=== PATIENT | female | born 1950 | race Caucasian/White ===

== ENCOUNTER 2016-11-20 16:00 | Inpatient (IN) | payer OTHER ==
[2016-11-25] MEDS ORDERED: VANCOMYCIN HCL 1,000 MG in 0.9 % SODIUM CHLORIDE 250ML 250 ML IVPB ONE (06:00)
[2016-11-25] MEDS ORDERED: CEFAZOLIN 2 Gram 2 GM/50 ML BAG IVPB ONE (06:00)
[2016-11-25] MEDS ORDERED: CELECOXIB 100 MG CAPSULE PO ONE (06:00)
[2016-11-25] MEDS ORDERED: METOCLOPRAMIDE 10 MG TABLET PO ONE (06:00)
[2016-11-25] MEDS ORDERED: MECLIZINE 25 MG TABLET PO ONE (06:00)
[2016-11-25] MEDS ORDERED: FAMOTIDINE 20MG TABLET PO ONE (06:00)
[2016-11-25] MEDS ORDERED: TRANEXAMIC ACID 1,000 MG/10 ML ML IV ONE ×2 (09:31→14:00)
[2016-11-25 09:34] LABS: ABO GROUP O; ANTIBODY SCREEN NEGATIVE (NEGATIVE); RH TYPE POSITIVE
[2016-11-25] MEDS ORDERED: BISACODYL 10 MG SUPP RC PRN (13:04)
[2016-11-25] MEDS ORDERED: DIPHENHYDRAMINE HCL 25 MG CAPSULE PO PRN (13:04)
[2016-11-25] MEDS ORDERED: KETOROLAC 30 MG/ML VIAL IVP PRN ×2 (13:04)
[2016-11-25] MEDS ORDERED: NALOXONE 0.4 MG/1 ML VIAL IVP PRN (13:04)
[2016-11-25] MEDS ORDERED: MAGNESIUM HYDROXIDE 30 ML UDC PO PRN (13:04)
[2016-11-25] MEDS ORDERED: HYDROMORPHONE HCL 1 MG/ML CPJ IM PRN ×2 (13:04)
[2016-11-25] MEDS ORDERED: ACETAMINOPHEN W/ CODEINE 300MG/60MG TABLET PO PRN ×2 (13:04)
[2016-11-25] MEDS ORDERED: ONDANSETRON HCL IV 4 MG/2 ML VIAL IVP PRN (13:04)
[2016-11-25] MEDS ORDERED: HYDROMORPHONE HCL 2 MG/ML VIAL IM PRN (13:04)
[2016-11-25] MEDS ORDERED: HYDROCODONE/APAP 10/325 TABLET PO PRN (13:04)
[2016-11-25] MEDS ORDERED: AL HYDROX/MAG HYDROX 30ML UD PO PRN (13:04)
[2016-11-25] MEDS ORDERED: ACETAMINOPHEN 325 MG TAB PO PRN (13:04)
--- NOTE | 2016-11-25 13:48 | Rehab Evaluation ---
Patient Information - Patient Information Diagnosis: L TKA Ordered Treatment: PT Evaluate and Treat Status: Initial Evaluation Surgery: Yes Date of Surgery: 11/25/16 Past Medical/Surgical Hx: PAST MEDICAL/SURGICAL HISTORY Past Surgical History colon resection with colostomy rectum removed 2010 hyst 2012l bladder stimulator left lower lobe lung resection -2014 PMH - Respiratory Hx Respiratory Disorders Yes Hx Bronchitis Yes Hx Pneumonia Yes: 2014 Hx of SOB Yes: due to inactivity Comment: left lower lobe lung cancer 2014 PMH - Cardiovascular Hx Cardiovascular Disorders Yes Hx Abnormal EKG Yes: related to bladder stimulator? 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 PMH - GI Hx Gastrointestinal Disorders Yes Comment: hx colon and rectal cancer - left colonostomy bag PMH - Hx Genitourinary Disorders Yes Hx Bladder Problem Yes: has bladder stimulator Hx Urinary Tract Infection Yes: frequent Comment: s/p hyst due to prolapse PMH - Endocrine Hx Endocrine Disorders No PMH - Musculoskeletal Hx Musculoskeletal Disorders Yes Hx Arthritis Yes Comment: LEFT KNEE PAIN PMH - Psych Hx Psychiatric Problems Yes Hx Anxiety Yes Hx Depression Yes: controlled with meds PMH - Hematology/Oncology Hx Hematology/Oncology Yes Disorders Hx Cancer Yes: colon, rectal and lung Hx Chemotherapy Yes Hx Radiation Therapy Yes Premorbid Status: Detail (The patient was independent with all mobility.) Social History: Detail (The patient lives in a one story home with spouse with a step and a half with railing at enterance. The patient's bathroom has a walk in tub and a standard toilet with grab bars. The patient has a wheeled walker and a single point cane.) Precautions: Other (WBAT on the L LE) - Time With Patient Total Time Spent With Patient (Min): 25 Treatment Procedures: Detail (Initial Evaluation) Subjective Information - Subjective Information Per Patient (The patient had no complaints of L knee pain.) Objective Data - Mental Status Patient Orientation: Oriented x3 - Visual Perception Appears within normal limits for therapeutic activities - ROM Not within normal limits (The patient's L knee AROM was limited s/p surgery.) - Strength/Tone Not within normal limits (The patient's R LE was generally 4+to 5/5. The patient's L LE was not formally tested with manual muscle testing secodary to s/ p surgery however L LE strength was functional ie: patient was able to lift LE with sit to supine without assist.) - Bed Mobility Independent (The patient acheived supine to and from sit transfer independently. ) - Transfers Independent (The patient was independent with sit to and from stand transfer and toilet transfer.) - Balance Balance Sitting: Good Balance Standing: Good (The patient was able to pull up and down briefs without support of walker.) - Sensation Deficit (The patient has diminished bilateral LE sensation to light touch due to nueropathy.) - Gait Detail (The patient ambulated with wheeled walker WBAT on the L LE with supervision of 1 for safety and to handle IV a distance of 13 feet x 2.) Therapy Assessment - Therapy Assessment Detail (The patient did well with bed mobility, transfers and ambulation. Feel the patient will progress well in Rehab.) Problem List - Problem List Physical Therapy Problem List: Detail (1) Decreased L knee AROM 2) Decreased L LE strength 3) bilateral LE neuropathy 4) Supervision with ambulation and decreased ambulation distance.) Goals - Goals Physical Therapy Goals: 1) The patient will ambulate independently with wheeled walker WBAT on the L LE on levels and supervision to independent on stairs. 2 ) The patient will be independent with bed mobility and all transfers. 3) The patient will be HEP. Prognosis - Prognosis Good Plan - Plan Physical Therapy Plan: PT 2 times a day M-F until all inpatient PT goals have been met for gait training, transfer training, bed mobility and instruction in HEP.
[2016-11-25] MEDS ORDERED: FENTANYL PF 100MCG/2ML VIAL IV ONE (14:00)
[2016-11-25] MEDS ORDERED: EPHEDRINE SULFATE 50 MG/ML ML IV ONE (14:00)
[2016-11-25] MEDS ORDERED: MIDAZOLAM HCL 2MG/2ML VIAL IV ONE (14:00)
[2016-11-25] MEDS ORDERED: PROPOFOL 10 MG/ML VIAL IV ONE (14:00)
[2016-11-25] MEDS ORDERED: BUPIVACAINE 0.5% W/EPI MPF 30 ML VIAL IVP ONE (14:00)
[2016-11-25] MEDS ORDERED: KETOROLAC 30 MG/ML VIAL IVP ONE (14:00)
[2016-11-25] MEDS ORDERED: LIDOCAINE 2% MDV (20MG/ML) 20ML VIAL IV ONE (14:00)
[2016-11-25] MEDS: POTASSIUM CHLORIDE/D5-0.9%NACL 20 MEQ/1,000 ML BAG IV SCH (15:21)
[2016-11-25] MEDS: PREGABALIN 50 MG CAPSULE PO SCH ×2 (16:04→21:43)
[2016-11-25] MEDS: TAPENTADOL 50 MG TAB PO SCH ×2 (16:05→21:45)
[2016-11-25] MEDS: CEFAZOLIN 2 Gram 2 GM/50 ML BAG IVPB SCH (18:32)
[2016-11-25] MEDS: ZOLPIDEM TARTRATE 5 MG TABLET PO PRN (21:42)
[2016-11-25] MEDS: DOCUSATE SODIUM 100 MG CAPSULE PO SCH (21:43)
[2016-11-26] MEDS: CEFAZOLIN 2 Gram 2 GM/50 ML BAG IVPB SCH ×3 (02:34→10:50)
[2016-11-26] MEDS: POTASSIUM CHLORIDE/D5-0.9%NACL 20 MEQ/1,000 ML BAG IV SCH ×2 (02:36→05:47)
[2016-11-26 07:06] LABS: HEMATOCRIT 33.8 % (35.0-47.0); HEMOGLOBIN 10.7 gm/dl (11.6-16.0)
[2016-11-26 07:19] LABS: ANION GAP 4.7 (7-16); CARBON DIOXIDE 32.3 mmol/L (22-30)
[2016-11-26] MEDS: TAPENTADOL 50 MG TAB PO SCH ×4 (07:21→22:57)
[2016-11-26] MEDS: HYDROCODONE/APAP 10/325 TABLET PO PRN ×4 (07:22→22:55)
[2016-11-26] MEDS: PREGABALIN 50 MG CAPSULE PO SCH ×3 (08:30→22:54)
--- NOTE | 2016-11-26 10:00 | Physical Therapy Tx Note ---
Physical Therapy Tx Note - Treatment Note Tolerated: Good (Patient sitting up in chair and doing well today; pain about 4/ 10 this am with putting weight on leg. She is able to do exercises sitting in chair but notes more discomfort.) Total Time Spent With Patient: 25 Physical Therapy Tx Note: Detail (Patient sitting up in chair reclined when entered room. Able to do exercises for knee sitting up: heel slides, SAQ, SLR, quad, glut and ham sets then ankle pumps. Assisted patient to let legs down from recliner then sit to stand independently, ambulated with FWW out to perales about 50 feet then back to room WBAT. Patient able to get back into bed with very little help with left LE then able to pull herself up in bed. Re-attached cryocuff and compressive stockings, pulled tray table close and call light. Patient felt a little more sore but doing well.) Physical Therapy Problem List: Detail (1) Decreased L knee AROM 2) Decreased L LE strength 3) bilateral LE neuropathy 4) Supervision with ambulation and decreased ambulation distance.) Physical Therapy Goals: 1) The patient will ambulate independently with wheeled walker WBAT on the L LE on levels and supervision to independent on stairs. 2 ) The patient will be independent with bed mobility and all transfers. 3) The patient will be HEP. Prognosis: Good (Patient doing quite well with mobility at this point; will try further distances ambulating this afternoon and steps.) Physical Therapy Plan: PT 2 times a day M-F until all inpatient PT goals have been met for gait training, transfer training, bed mobility and instruction in HEP.
--- NOTE | 2016-11-26 10:41 | Rehab Evaluation ---
Patient Information - Patient Information Diagnosis: L TKA Ordered Treatment: OT Evaluate and Treat Status: Initial Evaluation Surgery: Yes Date of Surgery: 11/25/16 History: Detail Past Medical/Surgical Hx: PAST MEDICAL/SURGICAL HISTORY Past Surgical History colon resection with colostomy rectum removed 2010 hyst 2012l bladder stimulator left lower lobe lung resection -2014 PMH - Respiratory Hx Respiratory Disorders Yes Hx Bronchitis Yes Hx Pneumonia Yes: 2014 Hx of SOB Yes: due to inactivity Comment: left lower lobe lung cancer 2014 PMH - Cardiovascular Hx Cardiovascular Disorders Yes Hx Abnormal EKG Yes: related to bladder stimulator? seeing geotechnical engineering technician 09-18-16 Exercise Tolerance Fair Comment: related to hip knee and neuropathy PMH - Neuro Hx Neurological Disorders Yes Hx Neuropathy Yes: bilat legs knees down, rigfht arm and fingers from chermo PMH - GI Hx Gastrointestinal Disorders Yes Comment: hx colon and rectal cancer - left colonostomy bag PMH - Hx Genitourinary Disorders Yes Hx Bladder Problem Yes: has bladder stimulator Hx Urinary Tract Infection Yes: frequent Comment: s/p hyst due to prolapse PMH - Endocrine Hx Endocrine Disorders No PMH - Musculoskeletal Hx Musculoskeletal Disorders Yes Hx Arthritis Yes Comment: LEFT KNEE PAIN PMH - Psych Hx Psychiatric Problems Yes Hx Anxiety Yes Hx Depression Yes: controlled with meds PMH - Hematology/Oncology Hx Hematology/Oncology Yes Disorders Hx Cancer Yes: colon, rectal and lung Hx Chemotherapy Yes Hx Radiation Therapy Yes Premorbid Status: Detail (The patient was independent with all mobility and ADLs MATERIALS DIRECTOR. She was here approx. 1 month ago for L KADIE. When asked about if she was still under hip precautions, patient reported that surgeon said "if it hurts , don't do it.") Social History: Detail (The patient lives in a one story home with spouse with a step and a half with railing at entrance. There is a basement but patient never goes down there. The patient's bathroom has a walk in tub with hand held shower head and grab bars. She has a janitorial account manager, sock aid, standard toilet ( recently purchased raised toilet seat). The patient has a 4 wheeled walker w/ seat and a single point cane.) Precautions: Other (WBAT on the L LE,) - Time With Patient Total Time Spent With Patient (Min): 45 Subjective Information - Subjective Information Per Patient (Patient may be having a R TKA in December depending on rehab of L TKA.) Objective Data - Pain Pain Present: No Pain Intensity: 0 Pain Scale Used: Numeric (1 - 10) - Mental Status Patient Orientation: Oriented x3 - ROM Within normal limits (BUE's) - Strength/Tone Within normal limits (BUE's) - Bed Mobility Independent - Transfers Independent (sit<>stand t/f's) - Balance Balance Sitting: Good - Sensation Deficit (Patient has neuropathy and has lost feeling of several digits in B hands.) - Gait Detail (Patient amb. w/ 2WW over 104 ft from room to surgical waiting room Ind. w/ no LOB or dizziness.) - ADL's/IADL's Detail (Patient was instructed on drsg techniques. She was familiar with these from recent hip sx. Required v/c's to thread surgical LE first, but then able to don pants Ind. Patient will not be wearing socks while at home and will wear crocs. She does have a sock aid and is able to verbalize how to use it. Ind with UB drsg. Ind w/ teeth brushing/face washing standing at sink w/ 2WW.) Therapy Assessment - Therapy Assessment Detail (Patient doing well following surgery. She is able to complete drsg Ind w / only v/c's x1 for technique with LB drsg. She is Ind w/ sit<>stand t/f's using 2ww. Discussed showering techniques and how to wrap L knee to avoid it getting wet when at home. Patient expresses concern about going home 2^ spouse is away until Thursday. She is anxious about being at home alone. Patient does have children that live near by but that work during the day and she does not want to be a "burden" by asking them to come over. Feel patient would benefit from home OT to further evaluate funtion and safety in the home. Will be able to further evaluate safety with showering if appropriate and if patient is to remain here for a few days.) Patient Education - Patient Education Teaching Topic: Equipment Use (Drsg technique using janitorial account manager), Other Teaching Method: Discussion Teaching Recipient: Patient Barriers To Learning: None Problem List - Problem List Physical Therapy Problem List: Detail (1) Decreased L knee AROM 2) Decreased L LE strength 3) bilateral LE neuropathy 4) Supervision with ambulation and decreased ambulation distance.) Occupational Therapy Problem List: Detail (1. Verbal cues for LB drsg techniques needed 2. Decreased knowledge of managing L knee when showering to avoid infection and increased pain) Goals - Goals Physical Therapy Goals: 1) The patient will ambulate independently with wheeled walker WBAT on the L LE on levels and supervision to independent on stairs. 2 ) The patient will be independent with bed mobility and all transfers. 3) The patient will be HEP. Occupational Therapy Goals: 1. Ind with LB drsg w/o verbal cues. 2. Ind. with showering using AD as needed Prognosis - Prognosis Good Plan - Plan Physical Therapy Plan: PT 2 times a day M-F until all inpatient PT goals have been met for gait training, transfer training, bed mobility and instruction in HEP. Occupational Therapy Plan: Recommend home OT. Evaluate showering if patient is to remain here to assess for safety with showering and managing L knee.
[2016-11-26] MEDS: HYDROCHLOROTHIAZIDE 25 MG TABLET PO SCH (10:45)
[2016-11-26] MEDS: ASPIRIN 325 MG TAB ENTERIC-COATED PO SCH (10:45)
[2016-11-26] MEDS: MULTIVITAMINS/MINERALS TABLET PO SCH (10:45)
[2016-11-26] MEDS: DOCUSATE SODIUM 100 MG CAPSULE PO SCH ×2 (10:45→22:56)
[2016-11-26] MEDS: FERROUS SULFATE 325 MG TAB PO SCH (10:46)
[2016-11-26] MEDS: CITALOPRAM 20 MG TABLET PO SCH (10:46)
[2016-11-26] MEDS: CHOLECALCIFEROL 1,000 UNIT TABLET PO SCH (10:46)
[2016-11-26] MEDS: RIVAROXABAN 10 MG TABLET PO SCH (10:46)
--- NOTE | 2016-11-26 14:04 | Consult ---
Consult Order Detail - Reason for Consult Consult Date: 11/26/16 Consult Order Detail: Requested medical consult for bladder spasm management by Dr Hidalgo - Chief Complaint Chief Complaint: DEGENERATIVE JOINT DISEASE LEFT KNEE HPI Consult - General Complaint: bladder spasm, stress incontinence, dribbling. Uses Myrbetriq at home Onset/Timin -: Year(s) Location: Other (bladder) Radiation: Non-Radiating Quality: Other (spasm) Consistency: Constant Associated symptoms: Denies other symptoms ROS - Genitourinary Genitourinary: Reports: As per HPI, Incontinence (stress), Other (dribbling) Past Medical History - SOCIAL HISTORY Smoking Status: Former smoker Alcohol Use: Rare Drug Use: None - RESPIRATORY Hx Respiratory Disorders: Yes Hx Bronchitis: Yes Hx Pneumonia: Yes (2014) Comment:: left lower lobe lung cancer 2014 - CARDIOVASCULAR Hx Cardio Disorders: Yes Hx Abnormal EKG: Yes (related to bladder stimulator? seeing bee keeper 09-18-16 ) Comment:: related to hip knee and neuropathy - NEURO Hx Neuro Disorders: Yes Hx Neuropathy: Yes (bilat legs knees down, rigfht arm and fingers from chermo) - GI Hx GI Disorders: Yes Hx of Polyps: Yes (colon) Comment:: hx colon and rectal cancer - left colonostomy bag - Hx Genitourinary Disorders: Yes Hx Bladder Problem: Yes (has bladder stimulator) Hx UTI: Yes (frequent) Comment:: s/p hyst due to prolapse - ENDOCRINE Hx Endocrine Disorders: No - MUSCULOSKELETAL Hx Musculoskeletal Disorders: Yes Hx Arthritis: Yes - PSYCH Hx Psych Problems: Yes Hx Anxiety: Yes Hx Depression: Yes (controlled with meds) - HEMATOLOGY/ONCOLOGY Hx Hematology/Oncology Disorders: Yes Hx Chemotherapy: Yes Hx Radiation Therapy: Yes Family Medical History Any Significant Family History?: Yes Hx Depression: Father *Depression Comment: alhz Hx Diabetes: Grandparents Hx Resp Disorders: Brother/Sister *Resp Comment: copd Hx Stroke: Grandparents H&P Meds - Home Medications and Allergies Previous Rx's Medication Instructions Recorded Hydromorphone HCl [Dilaudid] 2 mg PO Q4H PRN #40 tablet 09/25/16 Multivitamin/Iron/Folic Acid 1 tab PO DAILY tablet 09/25/16 [Centrum] Pregabalin [Lyrica] 200 mg PO TID capsule 09/25/16 Rivaroxaban [Xarelto] 10 mg PO DAILY #30 tab 09/25/16 Tapentadol HCl [Nucynta] 100 mg PO QID tab 09/25/16 Allergies Allergy/AdvReac Type Severity Reaction Status Date / Time No Known Drug Allergies Allergy Verified 09/15/16 09:15 Physical Exam - General General Appearance: Alert, Oriented x3, No acute distress - Head Head exam: Atraumatic - ENT ENT exam: Normal exam - Respiratory Respiratory exam: negative: Respiratory distress - GI/Abdominal GI/Abdominal exam: Soft, Normal bowel sounds. negative: Tenderness - exam: Deferred - Neurological Neurological exam: Alert, Oriented X3 - Psychiatric Psychiatric exam: Normal affect, Normal mood Results - Labs Result Diagrams: 11/26/16 06:41 11/26/16 06:41 Labs Last 24 Hours: Laboratory Results - last 24 hr 11/26/16 11/26/16 06:41 06:41 Hgb 10.7 L Hct 33.8 L Sodium 144 Potassium 4.5 Chloride 107 Carbon Dioxide 32.3 H Anion Gap 4.7 L BUN 14 Creatinine 1.0 Estimated GFR 59 Random Glucose 92 Calcium 8.4 L Assessment and Plan - Assessment and Plan (1) Stress incontinence Current Visit: Yes Status: Acute Base Code: N39.3 - STRESS INCONTINENCE ( FEMALE) (MALE) Comment: 11/26/16- consult by request of Dr Hidalgo for bladder spasm management. 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 Has bladder stimulator placed by Urologist Dr Tamir Gamez less than a year ago with good results. Has tried Ditropan and Detrol in the past with mild improvement with side effects of bladder cramping. Within the last year was changed to Myrbetriq with good results. Will need to make formulary change for treatment while hospitalized. Has been experiencing increased incontinence and dribbling since being without Myrbetric. Risks as well as potential side effects of Oxybutynin discussed with patient and she wishes to use while hospitalized to improve symptoms. - UA w/ C&S r/o underlying UTI - Oxybutynin 5mg BID (2) Bladder spasms Current Visit: Yes Status: Acute Base Code: N32.89 - OTHER SPECIFIED DISORDERS OF BLADDER Comment: 11/26/16- consult by request of Dr Hidalgo for bladder spasm management. 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 Has bladder stimulator placed by Urologist Dr Tamir Gamez less than a year ago with good results. Has tried Ditropan and Detrol in the past with mild improvement with side effects of bladder cramping. Within the last year was changed to Myrbetriq with good results. Will need to make formulary change for treatment while hospitalized. Has been experiencing increased incontinence and dribbling since being without Myrbetric. Risks as well as potential side effects of Oxybutynin discussed with patient and she wishes to use while hospitalized to improve symptoms. - UA w/ C&S r/o underlying UTI - Oxybutynin 5mg BID
--- NOTE | 2016-11-26 15:47 | Physical Therapy Tx Note ---
Physical Therapy Tx Note - Treatment Note Tolerated: Good (Doing much better this afternoon and willing to walk and try stairs: did quite well on stairs but quite a bit of pain with weightbearing yet. ROM very good at knee.) Total Time Spent With Patient: 30 Physical Therapy Tx Note: Detail (Patient seen in room and sitting in bed with clothes on. Able to move supine to sit to stand independently with FWW, WBAT left. Ambulated with FWW and WBAT about 100 feet to stairs, rested in wheelchair for a couple of minutes then ambulated down three steps using folded walker and rail, then stepped outside for a couple of minutes using curb type step, back in then up three more steps with proper technique then ambulated back to room with good technique and WBAT. Sat up in chair and performed knee exercises with good technique and ROM. Replaced cryocuff and tray table and call light close.) Physical Therapy Problem List: Detail (1) Decreased L knee AROM 2) Decreased L LE strength 3) bilateral LE neuropathy 4) Supervision with ambulation and decreased ambulation distance.) Physical Therapy Goals: 1) The patient will ambulate independently with wheeled walker WBAT on the L LE on levels and supervision to independent on stairs. 2 ) The patient will be independent with bed mobility and all transfers. 3) The patient will be HEP. Prognosis: Good (Patient has met goals but staying until Thursday am and will be seen at least tomorrow am () by PT to increase comfort with walking.) Physical Therapy Plan: PT 2 times a day M- until all inpatient PT goals have been met for gait training, transfer training, bed mobility and instruction in HEP.
[2016-11-26 18:08] LABS: URINE APPEARANCE CLEAR; URINE BILIRUBIN NEGATIVE (NEGATIVE); URINE BLOOD NEGATIVE (NEGATIVE); URINE COLOR YELLOW; URINE GLUCOSE (UA) NEGATIVE (NEGATIVE); URINE KETONE NEGATIVE (NEGATIVE); URINE LEUKOCYTE ESTERASE NEGATIVE (NEGATIVE); URINE NITRITE NEGATIVE (NEGATIVE); URINE PROTEIN NEGATIVE (NEGATIVE); URINE UROBILINOGEN 0.2 E.U./dL (0.20 - 1.00)
[2016-11-26] MEDS: ZOLPIDEM TARTRATE 5 MG TABLET PO PRN (22:55)
[2016-11-26] MEDS: OXYBUTYNIN CHLORIDE 5MG TABLET PO SCH (22:55)
[2016-11-27 06:34] LABS: HEMATOCRIT 34.4 % (35.0-47.0)
[2016-11-27 06:53] LABS: ANION GAP 6.7 (7-16); BLOOD UREA NITROGEN 18 mg/dL (7-17); CARBON DIOXIDE 29.3 mmol/L (22-30); CREATININE 0.9 mg/dL (0.52-1.04); EST GLOMERULAR FILTRATION RATE > 60 ml/min; GLUCOSE,RANDOM 87 mg/dL (70-110)
[2016-11-27] MEDS: PREGABALIN 50 MG CAPSULE PO SCH ×3 (08:23→21:36)
[2016-11-27] MEDS: TAPENTADOL 50 MG TAB PO SCH ×4 (08:24→21:36)
[2016-11-27] MEDS: CITALOPRAM 20 MG TABLET PO SCH (09:10)
[2016-11-27] MEDS: MULTIVITAMINS/MINERALS TABLET PO SCH (09:10)
[2016-11-27] MEDS: OXYBUTYNIN CHLORIDE 5MG TABLET PO SCH ×2 (09:11→21:36)
[2016-11-27] MEDS: HYDROCHLOROTHIAZIDE 25 MG TABLET PO SCH (09:11)
[2016-11-27] MEDS: ASPIRIN 325 MG TAB ENTERIC-COATED PO SCH (09:11)
[2016-11-27] MEDS: DOCUSATE SODIUM 100 MG CAPSULE PO SCH ×2 (09:11→21:36)
[2016-11-27] MEDS: CHOLECALCIFEROL 1,000 UNIT TABLET PO SCH (09:12)
[2016-11-27] MEDS: FERROUS SULFATE 325 MG TAB PO SCH (09:12)
[2016-11-27] MEDS: RIVAROXABAN 10 MG TABLET PO SCH (09:12)
[2016-11-27] MEDS: HYDROCODONE/APAP 10/325 TABLET PO PRN ×3 (09:13→21:42)
--- NOTE | 2016-11-27 10:45 | Physical Therapy Tx Note ---
Physical Therapy Tx Note - Treatment Note Tolerated: Good Total Time Spent With Patient: 30 Physical Therapy Tx Note: Detail (Patient states 6/10 pain in left knee. Patient transferred sit to and from stand independently. Patient ambulated 130 feet with wheeled walker SBA x1. Patient performed the following exercises seated in chair x10 reps each: quad sets, plantarflexion with green theraband, hamstring sets, glut squeezes, heel slides, and SLR with assist x5. Patient tolerated treatment well. Patient displays decreased strength and endurance with quad sets, and SLR with assist. Patient reports knee sore after treatment. Patient was left seated in chair with call light within reach.) Physical Therapy Problem List: Detail (1) Decreased L knee AROM 2) Decreased L LE strength 3) bilateral LE neuropathy 4) Supervision with ambulation and decreased ambulation distance.) Physical Therapy Goals: 1) The patient will ambulate independently with wheeled walker WBAT on the L LE on levels and supervision to independent on stairs. 2 ) The patient will be independent with bed mobility and all transfers. 3) The patient will be HEP. Prognosis: Good Physical Therapy Plan: PT 2 times a day M-F until all inpatient PT goals have been met for gait training, transfer training, bed mobility and instruction in HEP.
--- NOTE | 2016-11-27 15:40 | Consult ---
Consult Order Detail - Chief Complaint Chief Complaint: DEGENERATIVE JOINT DISEASE LEFT KNEE ROS - Genitourinary Genitourinary: Reports: As per HPI, Incontinence (stress), Other (dribbling) Past Medical History - SOCIAL HISTORY Smoking Status: Former smoker Alcohol Use: Rare Drug Use: None - RESPIRATORY Hx Respiratory Disorders: Yes Hx Bronchitis: Yes Hx Pneumonia: Yes (2014) Comment:: left lower lobe lung cancer 2014 - CARDIOVASCULAR Hx Cardio Disorders: Yes Hx Abnormal EKG: Yes (related to bladder stimulator? seeing nursing program chair 09-18-16 ) Comment:: related to hip knee and neuropathy - NEURO Hx Neuro Disorders: Yes Hx Neuropathy: Yes (bilat legs knees down, rigfht arm and fingers from chermo) - GI Hx GI Disorders: Yes Hx of Polyps: Yes (colon) Comment:: hx colon and rectal cancer - left colonostomy bag - Hx Genitourinary Disorders: Yes Hx Bladder Problem: Yes (has bladder stimulator) Hx UTI: Yes (frequent) Comment:: s/p hyst due to prolapse - ENDOCRINE Hx Endocrine Disorders: No - MUSCULOSKELETAL Hx Musculoskeletal Disorders: Yes Hx Arthritis: Yes - PSYCH Hx Psych Problems: Yes Hx Anxiety: Yes Hx Depression: Yes (controlled with meds) - HEMATOLOGY/ONCOLOGY Hx Hematology/Oncology Disorders: Yes Hx Chemotherapy: Yes Hx Radiation Therapy: Yes Family Medical History Any Significant Family History?: Yes Hx Depression: Father *Depression Comment: alhz Hx Diabetes: Grandparents Hx Resp Disorders: Brother/Sister *Resp Comment: copd Hx Stroke: Grandparents H&P Meds - Home Medications and Allergies Previous Rx's Medication Instructions Recorded Hydromorphone HCl [Dilaudid] 2 mg PO Q4H PRN #40 tablet 09/25/16 Multivitamin/Iron/Folic Acid 1 tab PO DAILY tablet 09/25/16 [Centrum] Pregabalin [Lyrica] 200 mg PO TID capsule 09/25/16 Rivaroxaban [Xarelto] 10 mg PO DAILY #30 tab 09/25/16 Tapentadol HCl [Nucynta] 100 mg PO QID tab 09/25/16 Allergies Allergy/AdvReac Type Severity Reaction Status Date / Time No Known Drug Allergies Allergy Verified 09/15/16 09:15 Results - Labs Result Diagrams: 11/27/16 06:17 11/27/16 06:17 Labs Last 24 Hours: Laboratory Results - last 24 hr 11/26/16 11/27/16 11/27/16 16:00 06:17 06:17 Hgb 11.0 L Hct 34.4 L Sodium 140 Potassium 3.8 Chloride 104 Carbon Dioxide 29.3 Anion Gap 6.7 L BUN 18 H Creatinine 0.9 Estimated GFR > 60 Random Glucose 87 Calcium 8.7 Urine Color Yellow Urine Appearance Clear Urine pH 6.0 Ur Specific Jerome <= 1.005 Urine Protein Negative Urine Glucose (UA) Negative Urine Ketones Negative Urine Blood Negative Urine Nitrite Negative Urine Bilirubin Negative Urine Urobilinogen 0.2 Ur Leukocyte Esterase Negative Assessment and Plan - Assessment and Plan (1) Stress incontinence Current Visit: Yes Status: Acute Base Code: N39.3 - STRESS INCONTINENCE ( FEMALE) (MALE) Comment: 11/27/16- UA negative for infection. Tolerating oxybutynin. Will sign off (2) Bladder spasms Current Visit: Yes Status: Acute Base Code: N32.89 - OTHER SPECIFIED DISORDERS OF BLADDER Comment: 11/26/16- consult by request of Dr Hidalgo for bladder spasm management. 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 Has bladder stimulator placed by Urologist Dr Tamir Gamez less than a year ago with good results. Has tried Ditropan and Detrol in the past with mild improvement with side effects of bladder cramping. Within the last year was changed to Myrbetriq with good results. Will need to make formulary change for treatment while hospitalized. Has been experiencing increased incontinence and dribbling since being without Myrbetric. Risks as well as potential side effects of Oxybutynin discussed with patient and she wishes to use while hospitalized to improve symptoms. - UA w/ C&S r/o underlying UTI - Oxybutynin 5mg BID
[2016-11-27] MEDS: ZOLPIDEM TARTRATE 5 MG TABLET PO PRN (21:42)
[2016-11-28] MEDS: HYDROCODONE/APAP 10/325 TABLET PO PRN ×2 (06:57→11:29)
[2016-11-28] MEDS ORDERED: PREGABALIN (LYRICA) 100MG CAPSULE PO SCH (08:00)
[2016-11-28] MEDS: TAPENTADOL 50 MG TAB PO SCH (09:08)
[2016-11-28] MEDS: CHOLECALCIFEROL 1,000 UNIT TABLET PO SCH (09:08)
[2016-11-28] MEDS: OXYBUTYNIN CHLORIDE 5MG TABLET PO SCH (09:09)
[2016-11-28] MEDS: CITALOPRAM 20 MG TABLET PO SCH (09:09)
[2016-11-28] MEDS: DOCUSATE SODIUM 100 MG CAPSULE PO SCH (09:09)
[2016-11-28] MEDS: HYDROCHLOROTHIAZIDE 25 MG TABLET PO SCH (09:09)
[2016-11-28] MEDS: RIVAROXABAN 10 MG TABLET PO SCH (09:09)
[2016-11-28] MEDS: FERROUS SULFATE 325 MG TAB PO SCH (09:09)
[2016-11-28] MEDS: MULTIVITAMINS/MINERALS TABLET PO SCH (09:09)
[2016-11-28] MEDS: ASPIRIN 325 MG TAB ENTERIC-COATED PO SCH (09:09)
--- NOTE | 2016-12-01 17:12 | Operative Note ---
DATE OF SURGERY: 11/25/2016. PREOPERATIVE DIAGNOSIS: End-stage arthrosis, left knee. POSTOPERATIVE DIAGNOSIS: End-stage arthrosis, left knee. OPERATION: LEFT TOTAL KNEE ARTHROPLASTY USING RODRIGUEZ & NEPHEW JADEN II COMPONENTS, A SIZE 4 OXINIUM FEMUR, A SIZE 3 STEMMED TIBIAL BASE PLATE, A 13 MM LIPPED TIBIAL INSERT. PATELLA WAS NOT RESURFACED BECAUSE IT WAS TOO THIN. Staff Surgeon: Chris Hidalgo MD. Anesthesia: Spinal. Preparation: ChloraPrep. Individual Considerations: None. PROCEDURE: Patient was taken to the operating room, placed supine on the operating table. She had a successful induction with spinal anesthetic. Her left lower extremity was prepped and draped in the usual fashion. Patient had a midline approach to the knee. Limb was elevated. Tourniquet was inflated to 250 mmHg. Sharp dissection carried down through skin and subcutaneous tissue. Small veins were coagulated with the Bovie. A medial arthrotomy was performed. Patella was everted. Knee was flexed. Patient had exposed bone in all 3 compartments, but the patella was quite thin. Provisional osteophytes were removed, fat pad was resected, provisional anterior meniscectomies were performed, and the capsule was released in medial proximal tibia, along with sacrificing the ACL. The initial femoral aeroplane pilot hole was then made freehand. It was set in 7.0 degrees of valgus and adjusted for a 10 mm resection with the guide. The initial transverse cut was then made. Skin guide was placed for the anterior and posterior alignment guide. It was found that I needed to go a size 4 because size 5 would overstuff, but I needed to translate it anteriorly 2 mm, and I used a translation block in order to do that. The anterior and posterior cuts were made, followed by chamfer cuts. Osteophytes were removed, and a size 4 trial was placed, found to fit well. Tibia was brought forward, and the remainder of the meniscal remnants were removed with the Bovie. The extraarticular tibial cutting jig was placed. It was cut in neutral with a 3 degree AP slope. Care was taken to adjust for rotation and flexion using extraarticular alignment guide. It was set for a 9 mm resection keyed off the high lateral side, secured with pins. When cutting the tibia, care was taken to preserve the PCL insertion on the tibia. After removing osteophytes, it was found that a size 3 would be appropriate. It was adjusted for rotation and secured with pins. I initially used the 11, but I later increased it to a 13 mm spacer and liner, and with the femoral trial, there were excellent motion and stability. Ligamentous balance, rotation alignment were thought to be normal. The femoral aeroplane pilot holes were impacted and the triflange tibial stamp was impacted. These trial components were removed. This lady was quite obese, and her patella was like 17 mm thick, so resurfacing was out of the question because it would be extremely high risk for fracture. I just trimmed the osteophytes. Tourniquet was let down briefly to get posteriorly and then placed back up again. The knee was then thoroughly irrigated out with pulsatile Betadine and saline to remove any visual or palpable debris. Bony surfaces were then dried. A size 3 stemmed tibial base plate was cemented into place, followed by impaction of a 13 mm lipped poly crosslink tibial insert, followed by cementing in a size 4 Oxinium femur. Implant surfaces were compressed, excess cement was removed, and after the cement had set, there were excellent motion and stability. Ligamentous balance, rotation alignment, patellofemoral tracking was normal. No lateral release was required. Tourniquet let down. Hemostasis was obtained with the Bovie. The periosteum and subcutaneous tissue and skin were infiltrated with 30 mL of 0.5% Marcaine with epinephrine. The capsule was then closed with running #2 Quill. Subcu was closed in layers with running 0 Quill. Skin was closed with sandy. Patient did receive 1 g of tranexamic acid IV preop. We then mixed 1 g of tranexamic acid with 40 mL of saline and injected it into the knee through a sterile needle and a sterile bulky compressive dressing with Aquacel dressing was applied. Patient tolerated the procedure well. Needle and sponge counts were corrected. Estimated blood loss was minimal. She was taken back to recovery in good condition. There were no complications. CC: DO ELOISA Rosa
--- NOTE | 2016-12-02 09:50 | Discharge Summary ---
DATE OF ADMISSION: 11/25/2016 DATE OF DISCHARGE: 11/28/2016 DATE OF SURGERY: 11/25/2016 HISTORY: The patient is a delightful, 66-year-old female who presents with end-stage arthrosis of the left knee. She was admitted for left total knee arthroplasty. Postoperatively, she did well. Her hospital course was unremarkable except for the fact that we needed to consult the medical doctor to get back on her bladder spasm medication. They followed her in the hospital for this problem. Her hospital course was unremarkable. Discharge hemoglobin was above 11. PLAN: Discharge to home in the care of her family. Home PT visiting nurse has been arranged. She will be given for DVT prophylaxis. She should have her sutures removed on 12/10/2016, and she should follow up in my office in 4-6 weeks. These instructions were given directly to the patient and her . FINAL DIAGNOSIS/PRIMARY DIAGNOSIS: End-stage arthrosis of the left knee. SECONDARY DIAGNOSIS: Bladder spasms, stable. OPERATIONS AND PROCEDURES: Cemented left total knee arthroplasty. CC: DO ELOISA Rosa
== END 2016-11-28 11:40 | disposition home or self-care (01) | DRG 470 ==
LOC: MEDSURG 11-25 08:41
PROVIDERS: ADMIT Orthopaedic Surgery; ATTEND Orthopaedic Surgery
PROC: 0SRD0J9 Replacement of Left Knee Joint with Synthetic Substitute, Cemented, Open Approach (ICD-10-PCS; principal; 2016-11-25 11:00)
DX: M17.12 Unilateral primary osteoarthritis, left knee (principal); G62.9 Polyneuropathy, unspecified; Z85.118 Personal history of other malignant neoplasm of bronchus and lung; Z93.3 Colostomy status
CPT/HCPCS: 80048; 81003; 85014; 85018; 86850; 86900; 86901; 97110; 97116; 97165; 97530; J1885; J3480; J7050

== ENCOUNTER 2017-01-29 13:30 | Inpatient (IN) | payer OTHER ==
[2017-02-10] MEDS ORDERED: VANCOMYCIN HCL 1,000 MG in 0.9 % SODIUM CHLORIDE 250ML 250 ML IVPB ONE (06:00)
[2017-02-10] MEDS ORDERED: METOCLOPRAMIDE 10 MG TABLET PO ONE (06:00)
[2017-02-10] MEDS ORDERED: MECLIZINE 25 MG TABLET PO ONE (06:00)
[2017-02-10] MEDS ORDERED: CELECOXIB 100 MG CAPSULE PO ONE (06:00)
[2017-02-10] MEDS ORDERED: CEFAZOLIN 2 Gram 2 GM/50 ML BAG IVPB ONE (06:00)
[2017-02-10] MEDS ORDERED: FAMOTIDINE 20MG TABLET PO ONE (06:00)
[2017-02-10] MEDS ORDERED: TRANEXAMIC ACID 1,000 MG/10 ML ML IV ONE (08:52)
[2017-02-10] MEDS ORDERED: 0.9 % SODIUM CHLORIDE 10 ML VIAL IVP ONE (08:52)
[2017-02-10 10:11] LABS: ABO GROUP O; ANTIBODY SCREEN NEGATIVE (NEGATIVE); RH TYPE POSITIVE
[2017-02-10] MEDS ORDERED: DIPHENHYDRAMINE HCL 25 MG CAPSULE PO PRN (13:37)
[2017-02-10] MEDS ORDERED: HYDROCODONE/APAP 10/325 TABLET PO PRN (13:37)
[2017-02-10] MEDS ORDERED: ZOLPIDEM TARTRATE 5 MG TABLET PO PRN (13:37)
[2017-02-10] MEDS ORDERED: ONDANSETRON HCL IV 4 MG/2 ML VIAL IVP PRN (13:37)
[2017-02-10] MEDS ORDERED: ACETAMINOPHEN 325 MG TAB PO PRN (13:37)
[2017-02-10] MEDS ORDERED: AL HYDROX/MAG HYDROX 30ML UD PO PRN (13:37)
[2017-02-10] MEDS ORDERED: NALOXONE 0.4 MG/1 ML VIAL IVP PRN (13:37)
[2017-02-10] MEDS ORDERED: BISACODYL 10 MG SUPP RC PRN (13:37)
[2017-02-10] MEDS ORDERED: HYDROMORPHONE HCL 2 MG/ML VIAL IM PRN (13:37)
[2017-02-10] MEDS ORDERED: ACETAMINOPHEN W/ CODEINE 300MG/60MG TABLET PO PRN ×2 (13:37)
[2017-02-10] MEDS ORDERED: KETOROLAC 30 MG/ML VIAL IVP PRN ×2 (13:37)
[2017-02-10] MEDS ORDERED: MAGNESIUM HYDROXIDE 30 ML UDC PO PRN (13:37)
[2017-02-10] MEDS ORDERED: LIDOCAINE 2% MDV (20MG/ML) 20ML VIAL IV ONE (14:00)
[2017-02-10] MEDS ORDERED: FENTANYL PF 100MCG/2ML VIAL IV ONE (14:00)
[2017-02-10] MEDS ORDERED: PROPOFOL 10 MG/ML VIAL IV ONE (14:00)
[2017-02-10] MEDS ORDERED: DIPHENHYDRAMINE HCL IV 50 MG/ML VIAL IVP ONE (14:00)
[2017-02-10] MEDS ORDERED: MIDAZOLAM HCL 2MG/2ML VIAL IV ONE (14:00)
--- NOTE | 2017-02-10 14:47 | Rehab Evaluation ---
Patient Information - Patient Information Diagnosis: R TKA Ordered Treatment: PT Evaluate and Treat Status: Initial Evaluation Surgery: Yes Date of Surgery: 02/10/17 Past Medical/Surgical Hx: PAST MEDICAL/SURGICAL HISTORY Past Surgical History LTHA left total knee arthroplasty 11-22 colon resection with colostomy rectum removed 2010 hyst 2012l bladder stimulator left lower lobe lung resection -2014 PMH - Respiratory Hx Respiratory Disorders Yes Hx Asthma No Hx Bronchitis Yes Hx Chronic Obstructive No Pulmonary Disease (COPD) Hx Dyspnea No Hx Pneumonia Yes: 2014 Hx Pulmonary Embolism No Hx Sleep Apnea No Hx Tuberculosis No Hx of CPAP No Hx of SOB Yes Comment: left lower lobe lung cancer 2014 PMH - Cardiovascular Hx Cardiovascular Disorders Yes Hx Abnormal EKG Yes: related to bladder stimulator? 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 Hx Cardiac Catheterization No Hx Chest Pain No Hx Congestive Heart Failure No Hx Deep Vein Thrombosis No Hx Edema No Hx Heart Attack No Hx Hypertension No Hx Hypotension No Hx Irregular Heartbeat No Hx Palpitations No Hx Pacemaker/Defibrillator No Hx Vascular Disease No Exercise Tolerance Good Hx Transient Ischemic Attacks No (TIA) Comment: related to hip knee and neuropathy PMH - Neuro Hx Neurological Disorders Yes Hx Brain Tumor No Hx Cerebrovascular Accident No Hx Dementia No Hx Dizziness No Hx Headaches No Hx Neuropathy Yes: bilat legs knees down, rigfht arm and fingers from chermo Hx Parkinson's Disease No Hx Seizures No Hx Speech Problem No Hx Syncope No Hx Transient Ischemic Attacks No (TIA) PMH - GI Hx Gastrointestinal Disorders Yes Hx Abdominal Pain No Hx Celiac Disease No Hx Crohn's Disease No Hx Diverticulitis No Hx Gastrointestinal Bleed No Hx Gastroesophageal Reflux No Hx Hepatitis/Jaundice No Hx Hiatal Hernia No Hx Irritable Bowel No Hx Liver Disease No Hx Nausea/Vomiting No Hx Obstructive Bowel No Hx Pancreatitis No Hx Rectal Bleeding No Hx Ulcer No Hx Weight Loss/Weight Gain No Comment: hx colon and rectal cancer - left colonostomy bag PMH - Hx Genitourinary Disorders Yes Hx Bladder Problem Yes: has bladder stimulator Hx Dialysis No Hx Kidney Stones No Hx Renal Disease No Hx Urinary Tract Infection Yes: frequent Comment: s/p hyst due to prolapse PMH - Endocrine Hx Endocrine Disorders No Hx Diabetes No Hx Thyroid Disease No PMH - Musculoskeletal Hx Musculoskeletal Disorders Yes Hx Arthritis Yes Hx Back Injury No Hx Fibromyalgia No Hx Gout No Hx Musculoskeletal Disease No Hx Osteoporosis No PMH - Psych Hx Psychiatric Problems Yes Hx Anxiety Yes Hx Behavior Problems No Hx Depression Yes: controlled with meds Hx Emotional Abuse No Hx Sexual Abuse No Hx Suicide Attempt No Major Depressive Episode No Feelings of Hopelessness No PMH - Hematology/Oncology Hx Hematology/Oncology Yes Disorders Hx Anemia No Hx Blood Disorders No Hx Bruising No Hx Cancer Yes: bowel rectum and lung CA Hx Chemotherapy Yes Hx Radiation Therapy Yes Hx Clotting Problems No Hx Sickle Cell Disease No Hx Unexplained Bleeding No Hx Blood Transfusion Reaction No Premorbid Status: Detail Social History: Detail (The patient lives in a one story home with who works 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 The patient has 3 steps at theenterance. The patient's bathroom is equipped with a walker in tub and elevated toilet.) Precautions: [place], Fall, Other (WBAT on the R LE.) - Time With Patient Total Time Spent With Patient (Min): 20 Treatment Procedures: Detail (Initial Evaluation, Instruction in HEP.) Subjective Information - Subjective Information Per Patient (The patient has complaints of R knee pain but did not rate her pain on 0 to 10 pain scale. The patient refused to get up and ambulate stating " The OT already got me up.") Objective Data - Mental Status Patient Orientation: Oriented x3 - ROM Not within normal limits (The patient's AROM in bilateral LE's was within functional limits except for R knee flexion was not assessed secondary to the patient refused to bend her knee. The patient's knee extension was -5 degrees.) - Strength/Tone Not within normal limits (The patient's L LE strength was generally 4+ to 5/5. The patient's R LE strength was not formally assessed however was functional ie : the patient was independent with SLR.) - Bed Mobility Independent (The patient was independent with supine to and from sit transfer per OT's note. The patient refused to get up for PT.) - Transfers Needs Assist (Not assessed the patient refused to get up.) - Gait Detail (Not assessed. The patient refused to get up for PT. The patient stood 3 minutes for OT per her report.) Therapy Assessment - Therapy Assessment Detail (The patient refused all activity due to "just getting up with OT". The patient did complete her HEP Independently including : ankle pumps, quad sets, gluteal sets, hamstring sets, all x 5 reps, SLR x 2 reps . The patient refused heel slides but verbalized proper technique.) Problem List - Problem List Physical Therapy Problem List: Detail (1) Nonambulatory 2) Decreased R knee AROM and Strength) Goals - Goals Physical Therapy Goals: 1) The patient will ambulate independently with assistive device on levels and stairs WBAT on the R LE. 2) The patient will be independent with all transfers. Prognosis - Prognosis Good Plan - Plan Physical Therapy Plan: PT 1-2 times a day for gait training, transfer training, instruction in HEP until inpatient PT goals have been met.
[2017-02-10] MEDS: PREGABALIN (LYRICA) 100MG CAPSULE PO SCH ×2 (15:22→21:57)
--- NOTE | 2017-02-10 15:54 | Rehab Evaluation ---
Patient Information - Patient Information Diagnosis: R TKA Ordered Treatment: OT Evaluate and Treat Status: Initial Evaluation Surgery: Yes Date of Surgery: 02/10/17 Past Medical/Surgical Hx: PAST MEDICAL/SURGICAL HISTORY Past Surgical History LTHA left total knee arthroplasty 11-22 colon resection with colostomy rectum removed 2010 hyst 2012l bladder stimulator left lower lobe lung resection -2014 PMH - Respiratory Hx Respiratory Disorders Yes Hx Asthma No Hx Bronchitis Yes Hx Chronic Obstructive No Pulmonary Disease (COPD) Hx Dyspnea No Hx Pneumonia Yes: 2014 Hx Pulmonary Embolism No Hx Sleep Apnea No Hx Tuberculosis No Hx of CPAP No Hx of SOB Yes Comment: left lower lobe lung cancer 2014 PMH - Cardiovascular Hx Cardiovascular Disorders Yes Hx Abnormal EKG Yes: related to bladder stimulator? 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 Hx Cardiac Catheterization No Hx Chest Pain No Hx Congestive Heart Failure No Hx Deep Vein Thrombosis No Hx Edema No Hx Heart Attack No Hx Hypertension No Hx Hypotension No Hx Irregular Heartbeat No Hx Palpitations No Hx Pacemaker/Defibrillator No Hx Vascular Disease No Exercise Tolerance Good Hx Transient Ischemic Attacks No (TIA) Comment: related to hip knee and neuropathy PMH - Neuro Hx Neurological Disorders Yes Hx Brain Tumor No Hx Cerebrovascular Accident No Hx Dementia No Hx Dizziness No Hx Headaches No Hx Neuropathy Yes: bilat legs knees down, rigfht arm and fingers from chermo Hx Parkinson's Disease No Hx Seizures No Hx Speech Problem No Hx Syncope No Hx Transient Ischemic Attacks No (TIA) PMH - GI Hx Gastrointestinal Disorders Yes Hx Abdominal Pain No Hx Celiac Disease No Hx Crohn's Disease No Hx Diverticulitis No Hx Gastrointestinal Bleed No Hx Gastroesophageal Reflux No Hx Hepatitis/Jaundice No Hx Hiatal Hernia No Hx Irritable Bowel No Hx Liver Disease No Hx Nausea/Vomiting No Hx Obstructive Bowel No Hx Pancreatitis No Hx Rectal Bleeding No Hx Ulcer No Hx Weight Loss/Weight Gain No Comment: hx colon and rectal cancer - left colonostomy bag PMH - Hx Genitourinary Disorders Yes Hx Bladder Problem Yes: has bladder stimulator Hx Dialysis No Hx Kidney Stones No Hx Renal Disease No Hx Urinary Tract Infection Yes: frequent Comment: s/p hyst due to prolapse PMH - Endocrine Hx Endocrine Disorders No Hx Diabetes No Hx Thyroid Disease No PMH - Musculoskeletal Hx Musculoskeletal Disorders Yes Hx Arthritis Yes Hx Back Injury No Hx Fibromyalgia No Hx Gout No Hx Musculoskeletal Disease No Hx Osteoporosis No PMH - Psych Hx Psychiatric Problems Yes Hx Anxiety Yes Hx Behavior Problems No Hx Depression Yes: controlled with meds Hx Emotional Abuse No Hx Sexual Abuse No Hx Suicide Attempt No Major Depressive Episode No Feelings of Hopelessness No PMH - Hematology/Oncology Hx Hematology/Oncology Yes Disorders Hx Anemia No Hx Blood Disorders No Hx Bruising No Hx Cancer Yes: bowel rectum and lung CA Hx Chemotherapy Yes Hx Radiation Therapy Yes Hx Clotting Problems No Hx Sickle Cell Disease No Hx Unexplained Bleeding No Hx Blood Transfusion Reaction No Premorbid Status: Detail (Pt was independent with all mobility and 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 She recently had a L TKA in November and is able to verbalize drsg technique.) Social History: Detail (The patient lives in a one story home with who works multimedia artist. The patient has 3 steps at the enterance. The patient's bathroom is equipped with a walk in tub and raised toilet. Grab bars located in shower as well as a hand held shower head. Pt has a bean weigher, sock aid, 4 WW w/ seat and single point cane.) Precautions: [place], Fall, Other (WBAT on the R LE.) - Time With Patient Total Time Spent With Patient (Min): 30 Treatment Procedures: Detail (eval OT LOW) Subjective Information - Subjective Information Per Patient (Pt reporting starting to have pain in R knee. Nsg notified for pain medication.) Objective Data - Pain Pain Present: Yes - Mental Status Patient Orientation: Oriented x3 - Visual Perception Appears within normal limits for therapeutic activities (Pt wears corrective lenses) - ROM Within normal limits (BUE's) - Strength/Tone Within normal limits (BUE's) - Coordination Appears within normal limits for therapeutic activities - Bed Mobility Independent (Ind w/ bed mobility from supine<> SS EOB) - Transfers Needs Assist (Min A sit<>stand t/f & v/c's for technique. Pt marched w/ R leg only 5x.) - Balance Balance Sitting: Good Balance Standing: Fair (w/ 2WW. Initiated by patient and not therapist, she attempted to remove Duong UE support from walker w/ mild LOB. Pt able to self correct using walker.) - ADL's/IADL's Detail (Reviewed drsg techniques and use of ADL equipment if needed. Pt very familiar with these techniques from having recent hip and L knee sx's and able to Ind. verbalize instructions back to therapist. Spouse was present during initial eval. She has all necessary equipment available. Spouse will be present for next several days to assist as needed. Pt will be having home OT/PT also to further address any issues once home.) Therapy Assessment - Therapy Assessment Detail (Feel patient will do well having already been familiar with drsg techniques from recent knee and hip sx. Pt has all necessary equipment and good support system. Recommend home OT/PT to further strengthen and assist with any issues once pt is in her own environment.) Patient Education - Patient Education Teaching Topic: Equipment Use Response: Verbalize Understanding Teaching Recipient: Patient, Significant Other Barriers To Learning: None Prognosis - Prognosis Good Plan - Plan Occupational Therapy Plan: No further inpatient OT needed at this time. Pt to follow-up with home OT upon d/c from [facility].
[2017-02-10] MEDS: TAPENTADOL 50 MG TAB PO SCH ×2 (16:18→21:57)
[2017-02-10] MEDS: TRAMADOL HCL 50 MG TABLET PO PRN ×2 (18:03→21:57)
[2017-02-10] MEDS: POTASSIUM CHLORIDE/D5-0.9%NACL 20 MEQ/1,000 ML BAG IV SCH (18:03)
[2017-02-10] MEDS: CEFAZOLIN 2 Gram 2 GM/50 ML BAG IVPB SCH (21:08)
[2017-02-10] MEDS: DOCUSATE SODIUM 100 MG CAPSULE PO SCH (21:57)
[2017-02-11] MEDS: TRAMADOL HCL 50 MG TABLET PO PRN ×4 (01:51→21:13)
[2017-02-11] MEDS: POTASSIUM CHLORIDE/D5-0.9%NACL 20 MEQ/1,000 ML BAG IV SCH (02:02)
[2017-02-11] MEDS: CEFAZOLIN 2 Gram 2 GM/50 ML BAG IVPB SCH ×2 (04:32→12:54)
[2017-02-11 06:55] LABS: HEMATOCRIT 31.9 % (35.0-47.0); HEMOGLOBIN 10.3 gm/dl (11.6-16.0)
[2017-02-11 07:09] LABS: ANION GAP 6.2 (7-16); BLOOD UREA NITROGEN 8 mg/dL (7-17); CARBON DIOXIDE 28.8 mmol/L (22-30); CREATININE 0.9 mg/dL (0.52-1.04); EST GLOMERULAR FILTRATION RATE > 60 ml/min; GLUCOSE,RANDOM 98 mg/dL (70-110)
[2017-02-11] MEDS: PREGABALIN (LYRICA) 100MG CAPSULE PO SCH ×3 (08:09→21:14)
[2017-02-11] MEDS: TAPENTADOL 50 MG TAB PO SCH ×4 (08:09→21:14)
[2017-02-11] MEDS: CITALOPRAM 20 MG TABLET PO SCH (09:27)
[2017-02-11] MEDS: HYDROCHLOROTHIAZIDE 25 MG TABLET PO SCH (09:27)
[2017-02-11] MEDS: RIVAROXABAN 10 MG TABLET PO SCH (09:27)
[2017-02-11] MEDS: ASPIRIN 325 MG TAB ENTERIC-COATED PO SCH (09:27)
[2017-02-11] MEDS: CHOLECALCIFEROL 1,000 UNIT TABLET PO SCH (09:27)
[2017-02-11] MEDS: FERROUS SULFATE 325 MG TAB PO SCH (09:27)
[2017-02-11] MEDS: DOCUSATE SODIUM 100 MG CAPSULE PO SCH ×2 (09:27→21:13)
[2017-02-11] MEDS: MULTIVITAMINS/MINERALS TABLET PO SCH (09:27)
--- NOTE | 2017-02-11 11:00 | Operative Note ---
DATE OF SURGERY: 02/10/2017 PREOPERATIVE DIAGNOSIS: Endstage arthrosis of the right knee. POSTOPERATIVE DIAGNOSIS: Endstage arthrosis of the right knee. Surgeon: Chris Hidalgo MD OPERATION: Cemented right total knee arthroplasty using [employer] Freda II components, with a size 4 Oxinium femur, size 3 stem tibia base plate, a 9 mm lip tibial insert. The patella was not resurfaced because it was too thin. Anesthesia: Spinal. PREPARATION: Chloraprep. INDIVIDUAL CONSIDERATIONS: This lady was morbidly obese with a body mass index approaching 50%. She had a fixed soft tissue envelope and because of this the dissection and positioning exposure were more difficult. PROCEDURE: The patient was taken to the operating room and placed supine on the operating room table. She had a successful induction with spinal anesthetic. Her right lower extremity was prepped and draped in the usual fashion. The limb was elevated, the tourniquet was inflated to 300 mmHg. The patient had a midline approach to the knee. Sharp dissection carried down through the skin and subcutaneous tissue, small veins were coagulated with the Bovie. Medial arthrotomy was performed, the patella was everted, the knee was flexed. She had exposed bone with a large margin of osteophytes and bone loss and even in the lateral compartments, some in the notch; the patella was reasonable. The ACL was sacrificed. Provisional anterior meniscectomies were performed. The capsule was released from the medial proximal tibia and the fat pad was resected. The initial femoral corporate pilot hole was then made free hand. The intramedullary femoral cutting jig was placed. It was cut to 7.0 degrees of valgus and adjusted for rotation and secured with pins for a 10 mm resection. The initial transverse cut was then made. A skid guide was placed in the anterior and posterior corporate pilot holes. It was found that a size 4 would be appropriate, but I did need to translate it anteriorly 2 mm to prevent notching the femur. The anterior and posterior cuts followed by chamfer cuts were made. Osteophytes removed and a size 4 trial was placed and found to fit well. The tibia was brought forward. The remainder of the meniscal remnants were removed with a Bovie. The extraarticular tibial cutting jig was placed. It was cut in neutral with a 3 degree AP slope. Care was taken to adjust for rotation and flexion using the extraarticular alignment guide and bony landmarks. It was set for a 9 mm resection, keyed off the high lateral side and secured with pins. When cutting the tibia, care was taken to preserve the PCL insertion on the tibia. Large medial osteophytes were removed with the rongeur and it was found that a size 3 baseplate would fit appropriately, it was adjusted for rotation and secured with pins. With an 11 mm trial and a femoral trial, there was excellent motion stability. Ligamentous balance and rotation alignment were thought to be normal. The femoral corporate pilot holes were then impacted, a tri-phalange tibial stamp was impacted and these trial components were removed. The patient had a very thin patella, measuring only 17 mm; to consider resurfacing would have led to fracture, so I had to abandon that and just trim the osteophytes. She did well on her other side with this management. The tourniquet was let down briefly to get bleeders posteriorly and then placed back up again. The knee was then thoroughly irrigated out with pulsatile Betadine and saline to remove any visual or palpable debris. The bony surfaces were then dried. A size 3 stem tibia base plate was cemented into place, followed by impaction of the 11 mm thick highly cross-linked tibial insert, followed by cementing in the size 4 Oxinium femur. The implant surfaces were compressed, excess cement was removed, and after the cement had set there was excellent motion stability, ligamentous balance, rotation alignment, and patellofemoral tracking were normal. No lateral release was required. The tourniquets were let down, hemostasis was obtained with a Bovie after irrigation. The capsule was then closed with a running 2 Quill; prior to this I did infiltrate the skin and subcutaneous tissues with Marcaine with epinephrine. The subq was closed with running 0 Quill, the skin was closed with sandy and a sterile, bulky compressive Aquacel-type dressing was applied. Prior to placing the dressing, I did mix a gram of tranexamic acid with 30 mL of saline and injected it into the knee and a sterile bulky compressive dressing was applied. The patient tolerated the procedure well. The needle and sponge counts were correct. Estimated blood loss was minimal, and she was taken back to recovery in good condition. There were no complications. CC: Dr. Juana AMIN
--- NOTE | 2017-02-11 11:35 | Physical Therapy Tx Note ---
Physical Therapy Tx Note - Treatment Note Tolerated: Good (Patient willing to get up for gait and able to get herself to edge of bed and let right LE off bed with other leg. Reviewed exercises before she stood then ambulated with FWW and CGA, CGA into perales about 15 feet then ambulated back to bathroom, used commode and washed hands then ambulated back to bed and into bed with light assist of right LE. Replaced compressive stockings, cryocuff and tray table, call light close. Patient requested soda so got her one.) Total Time Spent With Patient: 30 Physical Therapy Tx Note: Detail (As above, ambulated in perales about 15 feet with FWW and CGA, WBAT right. Able to assist with knee exercises and did well except quite a bit of pain with heel slides. Assisted onto and off commode in bathroom as well.) Physical Therapy Problem List: Detail (1) Nonambulatory 2) Decreased R knee AROM and Strength) Physical Therapy Goals: 1) The patient will ambulate independently with assistive device on levels and stairs WBAT on the R LE. 2) The patient will be independent with all transfers. Prognosis: Good (Patient did well with therapy today but does not walk very far yet and elevates shoulders with WB on right LE.) Physical Therapy Plan: PT 1-2 times a day for gait training, transfer training, instruction in HEP until inpatient PT goals have been met.
--- NOTE | 2017-02-11 14:56 | Physical Therapy Tx Note ---
Physical Therapy Tx Note - Treatment Note Tolerated: Fair Total Time Spent With Patient: 20 Physical Therapy Tx Note: Detail (Pt was supine in bed upon arrival. Pt states just returned to bed from going to the bathroom. Pt states pain in still really high and meds are not helping. Pt was not willing to get out of bed but was willing to do bed ex's. Pt. completed glute squeezes, isometric abdominals, quad sets, ankle pumps and ankle pf and df with manual resistance. Pt was not able to complete any further ex's due to bleeding in right knee from bandaged knee. Nursing was notified and Pt. was left in care of nurse. Pt states ex's do not increase or decrease pain.) Physical Therapy Problem List: Detail (1) Nonambulatory 2) Decreased R knee AROM and Strength) Physical Therapy Goals: 1) The patient will ambulate independently with assistive device on levels and stairs WBAT on the R LE. 2) The patient will be independent with all transfers. Prognosis: Good Physical Therapy Plan: PT 1-2 times a day for gait training, transfer training, instruction in HEP until inpatient PT goals have been met.
[2017-02-11] MEDS: HYDROMORPHONE HCL 1MG/ML **SYRINGE IM PRN ×2 (15:07→22:04)
[2017-02-12] MEDS: TRAMADOL HCL 50 MG TABLET PO PRN ×3 (01:27→14:56)
[2017-02-12] MEDS: HYDROMORPHONE HCL 1MG/ML **SYRINGE IM PRN (04:03)
[2017-02-12 07:12] LABS: HEMATOCRIT 32.3 % (35.0-47.0); HEMOGLOBIN 10.6 gm/dl (11.6-16.0)
[2017-02-12 07:26] LABS: ANION GAP 7.2 (7-16); BLOOD UREA NITROGEN 7 mg/dL (7-17); CARBON DIOXIDE 29.8 mmol/L (22-30); CREATININE 0.9 mg/dL (0.52-1.04); EST GLOMERULAR FILTRATION RATE > 60 ml/min; GLUCOSE,RANDOM 115 mg/dL (70-110)
[2017-02-12] MEDS: PREGABALIN (LYRICA) 100MG CAPSULE PO SCH ×3 (08:34→21:31)
[2017-02-12] MEDS: TAPENTADOL 50 MG TAB PO SCH ×4 (08:35→21:31)
[2017-02-12] MEDS: CITALOPRAM 20 MG TABLET PO SCH (10:44)
[2017-02-12] MEDS: MULTIVITAMINS/MINERALS TABLET PO SCH (10:44)
[2017-02-12] MEDS: CHOLECALCIFEROL 1,000 UNIT TABLET PO SCH (10:44)
[2017-02-12] MEDS: ASPIRIN 325 MG TAB ENTERIC-COATED PO SCH (10:44)
[2017-02-12] MEDS: FERROUS SULFATE 325 MG TAB PO SCH (10:45)
[2017-02-12] MEDS: RIVAROXABAN 10 MG TABLET PO SCH (10:45)
[2017-02-12] MEDS: DOCUSATE SODIUM 100 MG CAPSULE PO SCH ×2 (10:45→21:31)
[2017-02-12] MEDS: HYDROCODONE/APAP 10/325 TABLET PO PRN ×2 (10:45→21:32)
[2017-02-12] MEDS: HYDROCHLOROTHIAZIDE 25 MG TABLET PO SCH (10:45)
--- NOTE | 2017-02-12 12:47 | Physical Therapy Tx Note ---
Physical Therapy Tx Note - Treatment Note Tolerated: Fair Total Time Spent With Patient: 45 Physical Therapy Tx Note: Detail (Pt was supine upon arrival. Pt states pain is finally under better control with new meds. Pt completed bed mobility ex's min assist with supine to sit at edge of bed. Pt completed ankle pumps x 10 bilateral. Pt sit to stand Independently but required verbal cues for technique. Pt ambulated 60 ft. with front wheeled walker to door by nurses station. Pt required one rest period x [address] Pt was able to ascend and descend stairs in doorway with wheeled walker with contact guard assist x 1. Pt ambulated back to perales way but then was wheeled back to room with wheelchair due to fatigue and increased pain in leg. Pt returned to bed independently with transfer from chair to bed and bed mobility. Review of all HEP. Pt. stated understood ex's. Reattached patient to leg compressions, ice applied to right knee. Pt was given nurses call button and bedside table. Pt states very fatigued after treatment and sore.) Physical Therapy Problem List: Detail (1) Nonambulatory 2) Decreased R knee AROM and Strength) Physical Therapy Goals: 1) The patient will ambulate independently with assistive device on levels and stairs WBAT on the R LE. 2) The patient will be independent with all transfers. Prognosis: Good Physical Therapy Plan: PT 1-2 times a day for gait training, transfer training, instruction in HEP until inpatient PT goals have been met.
[2017-02-13] MEDS: HYDROCODONE/APAP 10/325 TABLET PO PRN (05:28)
[2017-02-13] MEDS: PREGABALIN (LYRICA) 100MG CAPSULE PO SCH (08:09)
[2017-02-13] MEDS: TAPENTADOL 50 MG TAB PO SCH (08:09)
[2017-02-13] MEDS: HYDROCHLOROTHIAZIDE 25 MG TABLET PO SCH (10:21)
[2017-02-13] MEDS: MULTIVITAMINS/MINERALS TABLET PO SCH (10:21)
[2017-02-13] MEDS: FERROUS SULFATE 325 MG TAB PO SCH (10:21)
[2017-02-13] MEDS: DOCUSATE SODIUM 100 MG CAPSULE PO SCH (10:22)
[2017-02-13] MEDS: ASPIRIN 325 MG TAB ENTERIC-COATED PO SCH (10:22)
[2017-02-13] MEDS: CITALOPRAM 20 MG TABLET PO SCH (10:23)
[2017-02-13] MEDS: CHOLECALCIFEROL 1,000 UNIT TABLET PO SCH (10:23)
[2017-02-13] MEDS: RIVAROXABAN 10 MG TABLET PO SCH (10:28)
[2017-02-13] MEDS: TRAMADOL HCL 50 MG TABLET PO PRN (10:28)
--- NOTE | 2017-02-19 11:59 | Discharge Summary ---
DATE OF ADMISSION: 02/10/2017 DATE OF DISCHARGE: 02/13/2017 DATE OF SURGERY: 02/10/2017 HISTORY: The patient is a delightful 66-year-old female who presented with end-stage arthrosis of the right knee. She has presented for right total knee arthroplasty. Postoperatively she did well and her hospital course was unremarkable. Discharge hemoglobin 10.6. She did not require transfusion. PLAN: To discharge her home in the care of her family. Home PT and visiting nurse has been arranged. She will be given Xarelto followed by aspirin for DVT prophylaxis. She will be given Dilaudid for pain. She will follow up in my office in 4 weeks. Stitches will be removed by the visiting nurse on 02/24/2017. FINAL DIAGNOSIS: End-stage arthrosis of the right knee. SECONDARY DIAGNOSIS: Acute operative blood loss anemia. OPERATIONS/PROCEDURES: Cemented right total knee arthroplasty. DISCHARGE CONDITION: Good. ELOISA
== END 2017-02-13 10:40 | disposition home or self-care (01) | DRG 470 ==
LOC: MEDSURG 02-10 08:32
PROVIDERS: ADMIT Orthopaedic Surgery; ATTEND Orthopaedic Surgery
PROC: 0SRC0J9 Replacement of Right Knee Joint with Synthetic Substitute, Cemented, Open Approach (ICD-10-PCS; principal; 2017-02-10 11:00)
DX: M17.11 Unilateral primary osteoarthritis, right knee (principal)
CPT/HCPCS: 80048; 85014; 85018; 86850; 86900; 86901; 97110; 97116; 97165; 97530; J1170; J1200; J1885; J3480; J7050